=== PATIENT | female | born 1960 | race Caucasian/White ===

== ENCOUNTER 2018-07-12 12:43 | Emergency (ER) | payer OTHER, BC ==
[2018-07-12 12:53] VITALS: BP 121/70; PULSE 80; TEMP 98.4; BMI 29.7
--- NOTE | 2018-07-12 13:41 | PDOC ---
History of Present Illness - General Chief Complaint: Injury Stated Complaint: HEAD INJURY, HEADACHE Time Seen by Provider: 07/12/18 13:33 History Source: Patient (Yesterday hit with direct blow to the head with wolleyball . Dizzy, headache denies LOC) Past History - Past Medical History Allergies/Adverse Reactions: Allergies Allergy/AdvReac Type Severity Reaction Status Date / Time No Known Allergies Allergy Verified 07/12/18 12:44 Home Medications: Ambulatory Orders Acetaminophen [Tylenol -] 1,000 mg PO ONCE PRN 07/12/18 Asthma: No COPD: No CHF: No Diabetes: No HTN: No - Suicide/Smoking/Psychosocial Hx Smoking Status: No Smoking History: Never smoked Have you smoked in the past 12 months: No Number of Cigarettes Smoked Daily: 0 Information on smoking cessation initiated: No Hx Alcohol Use: (social) Drug/Substance Use Hx: No *Physical Exam - Vital Signs Last Vital Signs Temp Pulse Resp BP Pulse Ox 98.4 F 80 18 121/70 100 07/12/18 12:43 07/12/18 12:43 07/12/18 12:43 07/12/18 12:43 07/12/18 12:43 *DC/Admit/Observation/Transfer Diagnosis at time of Disposition: Head trauma Qualifiers: Encounter type: initial encounter Qualified Code(s): S09.90XA - Unspecified injury of head, initial encounter - Discharge Dispostion Disposition: HOME Condition at time of disposition: Stable Decision to Admit order: No - Referrals Referrals: Renato Zuñiga MD [Primary Care Provider] - - Patient Instructions Printed Discharge Instructions: DI for Closed Head Injury - Post Discharge Activity Forms/Work/School Notes: Back to Work
== END 2018-07-12 14:53 | disposition home or self-care (01) ==
LOC: FER 12:43
DX: S09.90XA Unspecified injury of head, initial encounter (principal); W21.02XA Struck by soccer ball, initial encounter; Y93.89 Activity, other specified; Y92.89 Other specified places as the place of occurrence of the external cause
CPT/HCPCS: 70450-TC; 99282-25

== ENCOUNTER 2022-02-16 21:24 | Emergency (ER) | payer BC, OTHER ==
[2022-02-16 21:37] VITALS: BP 134/66; PULSE 70; TEMP 98.6
== END 2022-02-16 23:10 | disposition home or self-care (01) ==
LOC: FER 21:24
DX: J18.9 Pneumonia, unspecified organism (principal)
CPT/HCPCS: 71046-TC-FY; 93005; 93010; 99283-25